=== PATIENT | female | born 1950 | race Caucasian/White ===

== ENCOUNTER 2019-03-08 13:02 | Inpatient (IN) | payer MEDICARE, OTHER ==
[2019-03-08] MEDS ORDERED: Sodium Chloride 0.9% 1,000 ML IV ONE ×2 (13:17→15:20)
[2019-03-08 13:52] LABS: BASOPHILE ABSOLUTE 0.1 Th/cumm (0-0.2); EOSINOPHILE ABSOLUTE 0.1 Th/cmm (0.1-0.4); HEMATOCRIT 41.7 % (41.0-60); HEMOGLOBIN 13.9 gm/dL (12-16); LYMPHOCYTE ABSOLUTE 0.4 Th/cmm (1.5-3.0); MEAN CELL VOLUME 86.3 fl (81-100); MEAN CORPUSCULAR HEMOGLOBIN 28.8 pg (27.0-31.0); MEAN CORPUSCULAR HGB CONC 33.4 pg (28.0-36.0); MONOCYTE ABSOLUTE 0.3 Th/cmm (0.3-1.0); NEUTROPHILE ABSOLUTE 12.3 Th/cmm (1.8-8.0); PLATELET COUNT 446 Th/cmm (150-400); RED BLOOD COUNT 4.83 Mil/cmm (3.80-5.20); RED CELL DISTRIBUTION WIDTH 14.8 % (11.5-20.0); WHITE BLOOD COUNT 13.2 Th/cmm (4.8-10.8)
[2019-03-08 13:54] LABS: INR 0.92 (0.5-1.4)
[2019-03-08 14:01] LABS: ALB/GLOB RATIO 1.8 (1.0-1.8); ALBUMIN 4.6 gm/dL (3.7-5.3); ALKALINE PHOSPHATASE 92 U/L (34-104); ANION GAP 16.5 (7.0-16.0); BILIRUBIN,TOTAL 0.3 mg/dL (0.3-1.0); BUN - UREA NITROGEN 30 mg/dL (7-25); CALCIUM SERUM 10.3 mg/dL (8.6-10.3); CARBON DIOXIDE 20.5 mEq/L (21.0-31.0); CHLORIDE 106 mEq/L (98-107); CREATININE KINASE 55 U/L (30-223); GFR AFRICAN-AMERICAN > 60.0 ml/min (>90); GFR NON AFRICAN-AMERICAN 58.6 ml/min; GLUCOSE 129 mg/dL (70-105); SGOT 18 U/L (13-39); SGPT/ALT 13 U/L (7-52); SODIUM SERUM 138 mEq/L (136-145); TOTAL PROTEIN,SERUM 7.2 gm/dL (6.0-8.3)
[2019-03-08 14:02] LABS: AMYLASE SERUM 82 U/L (29-103); LIPASE 74 U/L (11-82)
[2019-03-08 14:41] LABS: BAND NEUTROPHILE 0 % (0-10); BASOPHIL 0 % (0-3); EOSINOPHIL 0 % (0-5); LYMPHOCYTE 4 % (20-50); MONOCYTE 3 % (2-10); NEUTROPHILS 93 % (40-80)
[2019-03-08 14:42] LABS: PLATELET ESTIMATE INCREASED PLATELETS (NORMAL)
--- NOTE | 2019-03-08 14:46 | ED Physician Chart ---
ED Chief Complaint/HPI - Patient Information Date Seen:: 03/08/19 Time Seen:: 13:25 Chief Complaint:: Fever History of Present Illness:: onset x 3 days of fever, cough, congestion, A/N/V/D; no report of/pt denies trauma, H/As, neck pain, C/P, SOB, Abd. Pain, or urinary s/s Allergies:: Allergies Allergy/AdvReac Type Severity Reaction Status Date / Time gabapentin Allergy Verified 03/08/19 13:23 Vitals:: Vital Signs - 8 hr 03/08/19 13:29 Temp 97.4 F HR 56 RR 18 BP 124/48 O2 Sat % 98 Historian:: Patient, EMS Review:: Nurse's Note Reviewed, Old Chart Reviewed, EMS run form Reviewed ED Review of Systems - Review of Systems General/Constitutional: No fever, No chills, No weight loss, No weakness, No diaphoresis, No edema, No loss of appetite Skin: No skin lesions, No rash, No bruising Head: No headache, No light-headedness Eyes: No loss of vision, No pain, No diplopia ENT: No earache, No nasal drainage, No sore throat, No tinnitus Neck: No neck pain, No swelling, No thyromegaly, No stiffness, No mass noted Cardio Vascular: No chest pain, No palpitations, No PND, No orthopnea, No edema Pulmonary: No SOB, No cough, No sputum, No wheezing GI: No nausea, No vomiting, No diarrhea, No pain, No melena, No hematochezia, No constipation, No hematemesis G/U: No dysuria, No frequency, No hematuria, No nacturia Member Service Specialist: No vaginal discharge, No abnormal vaginal bleed, No contraction Musculoskeletal: No bone or joint pain, No back pain, No muscle pain Endocrine: No polyuria, No polydipsia Psychiatric: Prior psych history, Depression, Anxiety, No suicidal ideation, No homicidal ideation, No auditory hallucination, No visual hallucination Hematopoietic: No bruising, No lymphadenopathy Allergic/Immuno: No urticaria, No angioedema Neurological: No syncope, No focal symptoms, No weakness, No paresthesia, No headache, No seizure, No dizziness, No confusion, No vertigo ED Past Medical History - Past Medical History Obtainable: Yes Past Medical History: HTN, PUD/GERD Family History: HTN Social History: Non Smoker, No Alcohol, No Drug Use, Single, Care Facility Surgical History: None Psychiatricy History: Depression Medication: Reviewed Family Medical History - Family Member Mother History Unknown: Yes ED Physical Exam - Physical Examination General/Constitutional: Awake, Well-developed, well-nourished, Alert, No distress, GCS 15, Non-toxic appearing, Ambulatory Head: Atraumatic Eyes: Lids, conjuctiva normal, PERRL, EOMI Skin: Nl inspection, No rash, No skin lesions, No ecchymosis, Well hydrated, No lymphadenopathy ENMT: External ears, nose nl, TM canals nl, Nasal exam nl, Lips, teeth, gums nl , Oropharynx nl, Tonsils nl Neck: Nontender, Full ROM w/o pain, No JVD, No nuchal rigidity, No bruit, No mass, No stridor Respiratory: Nl effort/Exclusion Other Respiratory comments:: Lungs: + Rales and Rhonchi Cardio Vascular: RRR, No murmur, gallop, rubs, NL S1 S2, Carotid/Femoral/Distal pulses equal bilaterally GI: No tenderness/rebounding/guarding, No organomegaly, No hernia, Normal BS's, Nondistended, No mass/bruits, No McBurney tenderness : No CVA tenderness Extremities: No tenderness or effusion, Full ROM, normal strength in all extremities, No edema, Normal digits & nails Neuro/Psych: Alert/oriented, DTR's symmetric, Normal sensory exam, Normal motor strength, Judgement/insight normal, Mood normal, Normal gait, No focal deficits Misc: Normal back, No paraspinal tenderness ED Labs/Radiology/EKG Results - Lab Results Results: Laboratory Tests 03/08/19 03/08/19 03/08/19 13:32 13:32 13:32 WBC 13.2 H RBC 4.83 Hgb 13.9 Hct 41.7 MCV 86.3 MCH 28.8 MCHC Differential 33.4 RDW 14.8 Plt Count 446 H MPV 7.5 Add Manual Diff YES Band Neutrophils % 0 Neutrophils (Manual) 93 H Lymphocytes 4 L Monocytes 3 Eosinophils 0 Basophils 0 Platelet Estimate INCREASED PLATELETS PT 9.6 INR 0.92 PTT (Actin FS) 25.9 L Sodium 138 Potassium 5.0 Chloride 106 Carbon Dioxide 20.5 L Anion Gap 16.5 H BUN 30 H Creatinine 1.0 Est GFR ( Amer) > 60.0 Est GFR (Non-Af Amer) 58.6 BUN/Creatinine Ratio 30.0 Glucose 129 H Whole Bld Lactic Acid Calcium 10.3 Total Bilirubin 0.3 AST 18 ALT 13 Alkaline Phosphatase 92 Creatine Kinase 55 Troponin I Total Protein 7.2 Albumin 4.6 Globulin 2.6 Albumin/Globulin Ratio 1.8 Amylase Lipase 03/08/19 03/08/19 13:32 13:32 WBC RBC Hgb Hct MCV MCH MCHC Differential RDW Plt Count MPV Add Manual Diff Band Neutrophils % Neutrophils (Manual) Lymphocytes Monocytes Eosinophils Basophils Platelet Estimate PT INR PTT (Actin FS) Sodium Potassium Chloride Carbon Dioxide Anion Gap BUN Creatinine Est GFR ( Amer) Est GFR (Non-Af Amer) BUN/Creatinine Ratio Glucose Whole Bld Lactic Acid 2.30 H* Calcium Total Bilirubin AST ALT Alkaline Phosphatase Creatine Kinase Troponin I 0.01 Total Protein Albumin Globulin Albumin/Globulin Ratio Amylase 82 Lipase 74 Comments:: Reviewed - Radiology Results Comments:: CXR: + Large Left Perihilar mass/infiltrate - EKG Interpretations EKG Time:: 13:23 Rate & Rhythm: 39; SB Comments:: non-specific st-t changes ED Septic Shock - . Is Septic Shock (SBP<90, OR Lactate>4 mmol\L) present?: No - <6hrs of presentation: Vital Signs: Vital Signs - 8 hr 03/08/19 13:29 Temp 97.4 F HR 56 RR 18 BP 124/48 O2 Sat % 98 ED Reassessment (Disposition) - Reassessment Reassessment Condition:: Improved - Diagnosis Diagnosis:: Fever; N/V/D; AGE; Elevated Lactic Acid; Lactic Acidosis; Dehydration; PNA; Leukocytosis; Bradycardia; Sepsis - Aftercare/Follow up Instructions Aftercare/Follow-Up Instructions:: Counseled pt regarding lab results/diagnosis & need follow up, Counseled pt & family regarding lab results/diagnosis & need follow up - Patient Disposition Discharge/Transfer:: Acute Care w/in this hosp Accepting Physician:: Dr. Oseguera Time Called:: 1500 Time Responded:: 15:00 Admitted to:: ICU Spoke to:: Dr. Oseguera Admitting Medical Physician:: Dr. Oseguera Condition at Disposition:: Stable, Improved
--- NOTE | 2019-03-08 14:48 | Diagnostic Imaging Report ---
CHEST X-RAY: AP view INDICATION: Fever, cough COMPARISON: None FINDINGS: There is a large left perihilar mass measuring 7.6 x 5.7 cm. No effusions. Heart size is normal. Degenerative changes of the spine are noted. IMPRESSION: Large left perihilar mass most corporate representative of malignancy. Recommend further assessment with CT of the chest. Referring team was informed of the findings following the exam.
[2019-03-08] MEDS ORDERED: cefTRIAXone 1 GM in Sodium Chloride 0.9% 50 ML IV ONE (15:06)
[2019-03-08] MEDS ORDERED: Atropine Sulfate 1 mg/mL 1 mL Vial IVP ONE (15:21)
[2019-03-08 18:24] LABS: URINE SOURCE MIDSTREAM
[2019-03-08 18:26] LABS: URINE BILIRUBIN NEGATIVE (NEGATIVE); URINE BLOOD NEGATIVE (NEGATIVE); URINE GLUCOSE (UA) NEGATIVE (NEGATIVE); URINE KETONE NEGATIVE (NEGATIVE); URINE LEUKOCYTE ESTERASE NEGATIVE (NEGATIVE); URINE NITRATE NEGATIVE (NEGATIVE); URINE PROTEIN NEGATIVE (NEGATIVE); URINE UROBILINOGEN 0.2 E.U./dL (0.2 - 1.0)
[2019-03-08 18:30] LABS: URINE CLARITY CLEAR (CLEAR); URINE COLOR YELLOW; URINE MICROSCOPIC INDICATED? YES
[2019-03-08 18:32] LABS: URINE BACTERIA 1+ /hpf (NONE SEEN); URINE EPITHELIAL CELLS RARE /lpf (FEW); URINE RBC NONE SEEN /hpf (0-5); URINE WBC NONE SEEN /hpf (0-5)
[2019-03-08] MEDS ORDERED: Maalox 30 mL Cup PO PRN (18:38)
[2019-03-08] MEDS ORDERED: Magnesium Hydroxide (MOM) 30 mL UDC PO PRN (18:38)
[2019-03-08] MEDS ORDERED: guaiFENesin 200 MG/10 ML UDC PO PRN (18:42)
[2019-03-08] MEDS ORDERED: D5-0.45NS 1,000 ML IV SCH (18:45)
[2019-03-08] MEDS ORDERED: Ipratropium Neb 0.5 mg/2.5 mL UD HHN SCH (19:00)
[2019-03-08] MEDS ORDERED: Albuterol Nebulizer 2.5mg/3mL HHN SCH (19:00)
--- NOTE | 2019-03-08 20:11 | History & Physical ---
ADMIT DATE: 03/08/2019 CHIEF COMPLAINT: Fever and vomiting. HISTORY OF PRESENT ILLNESS: This is a 68-year-old female with history of mental illness, bipolar, hypertension, admitted from [facility] secondary to fever and vomiting. The patient apparently ate some clams. The patient was brought to the ER, noted to have low heart rate in the 30s-40s. The patient also noted to have elevated lactic acid, elevated white count. The patient with abnormal chest x-ray as well. PAST MEDICAL HISTORY: As mentioned in the history of present illness. PAST SURGICAL HISTORY: Denies surgeries in the past. ALLERGIES: No known drug allergies. MEDICATIONS: Multivitamin, melatonin, magnesium, Colace, Dulcolax, Tylenol. FAMILY HISTORY: Noncontributory. SOCIAL HISTORY: The patient is from [facility]. REVIEW OF SYSTEMS: This is limited secondary to the patient's current mental state. The patient is not a best historian. We will try to obtain more detailed review of system at a later date by talking to family members as well as from Dr. Soria who knows the patient by previous admissions. There is a daughter, Carmen Pennington #[phone]. There is a conservator Jimbo Teixeira #[phone]. PHYSICAL EXAMINATION: VITAL SIGNS: Blood pressure 102/40 on 03/06/2019, pulse 85, temperature is 97.7, heart rates as low as 40, blood pressure still was 87/47. GENERAL: Elderly female, appears her stated age. NECK: Supple. No mass. LUNGS: Equal breath sounds, few rhonchi. HEART: Regular rate and rhythm with systolic ejection murmur. ABDOMEN: Soft, globular. EXTREMITIES: Positive excoriation. NEUROLOGIC: Limited. LABORATORY DATA: WBC 13, hemoglobin 13, platelets 446. Sodium 130, potassium 4.0, BUN 34, creatinine 1.0, bicarb is 20, lactic acid 3.1, glucose 129. UA showed some bacteria. ASSESSMENT AND PLAN: Sepsis, possible pneumonia, leukocytosis, thrombocytosis, renal insufficiency/dehydration, lactic acidosis, hyperglycemia, hypotension, schizoaffective disorder, bradycardia, large left lung mass. Continue the patient on oxygen and bronchodilator treatment. Continue to be on empiric IV antibiotic. We will put the patient to Zosyn, 1 dose of vancomycin. We will refer the patient to Pulmonary as well as Cardiology. We will order CT chest without contrast. Apparently, the patient refused CAT scan with contrast. We will continue to follow. We will admit the patient to Telemetry. We will also refer the patient to Psychiatry. JOB# [id number] MTDD
[2019-03-08] MEDS ORDERED: Non-Formulary Item 1 EA (Melatonin [Melatonin] 3 MG) PO SCH (21:00)
[2019-03-08] MEDS: Heparin Sod 5,000Units/ML 5,000 UNITS/ML VIAL SUBQ SCH ×2 (21:03→21:05)
[2019-03-08 21:22] VITALS: BP 93/42
[2019-03-08] MEDS ORDERED: DOPamine 400 MG/250 ML BAG IV ONE (22:09)
[2019-03-08] MEDS ORDERED: Sodium Chloride 0.9% 500 ML IV ONE (22:14)
[2019-03-08] MEDS ORDERED: DOPamine 400 MG/250 ML BAG IV PRN (22:16)
[2019-03-09] MEDS ORDERED: Norepinephrine 4 mg/4mL Vial IV ONE ×2 (00:24→00:25)
[2019-03-09] MEDS ORDERED: DOPamine 400 MG/250 ML BAG IV ONE (04:06)
[2019-03-09] MEDS ORDERED: Multivitamin Tab PO SCH (09:00)
--- NOTE | 2019-03-09 10:59 | Diagnostic Imaging Report ---
CT Chest without IV contrast HISTORY: Mass COMPARISON: Chest x-ray seen earlier the same day. Technique: Axial images were obtained from the base of the neck to the upper abdomen without IV contrast. Reconstructions were made. Total DLP 201 CTD I 6.2 Findings: Exam is limited due to lack of IV contrast. No definite mediastinal lymphadenopathy. Heart size is normal. The ascending aorta measures up to 3.1 cm. Diffuse atherosclerosis is noted. There is a large mass primarily involves the left lower lobe and along the left posterior hilum and encasing the descending aorta. This mass measures 8.1 x 4.4 greatest dimension. Hypoventilatory and atelectatic lung changes are noted with minimal left basal consolidative changes/passive atelectasis. No pneumothorax. The upper abdomen shows small low-density liver lesions difficult to characterize. Gallstones are noted. Renal cysts are noted including partially visualized 2.3 cm left renal cyst. Degenerative changes of the spine are noted. IMPRESSION: Mild large left lung mass primarily located in the left lower lobe along the posterior left hilar region and encasing the lateral margins of the descending aorta. Findings are most hvac sales representative of bronchogenic malignancy. Clinical correlation and follow up recommended Minimal left basal passive atelectasis/consolidative changes. Diffuse atherosclerotic vascular disease Additional findings as above.
--- NOTE | 2019-03-09 12:19 | Discharge Summary ---
DATE OF DISCHARGE: 03/09/2019 SUMMARY CHIEF COMPLAINT: Fever and vomiting. FINAL DIAGNOSES: The patient ____ cardiac arrhythmia, sepsis, hypotension/septic shock, acute respiratory failure. The patient was intubated, leukocytosis, thrombocytosis, lactic acidosis, hyperglycemia, psych disorder and bradycardia, large left lung mass. HISTORY: This was a 68-year-old female with history of mental illness, hypertension, admitted from [facility] secondary to fever and vomiting. The patient also noted to have elevated lactic acid and white count and one time had a low heart rate. The patient admitted for management. HOSPITAL COURSE: The patient was initially admitted to telemetry as the patient's blood pressure has normalized as well as the heart rate, but during the night the patient's heart rate dropped again and blood pressure dropped. The patient was started on a dopamine drip, given Ativan with IV hydrations. The patient is on IV vancomycin and IV Zosyn. She was referred to Cardiology as well as Pulmonary and Psychiatry, but the patient ____ several times and eventually was not able to be revived successfully. The patient was seen by Dr. Ledesma, the patient was pronounced at 12:42. CONDITION ON DISCHARGE: The patient . DISCHARGE INSTRUCTIONS: The patient . [facility]# [id number]
== END 2019-03-09 00:41 | disposition expired | DRG 871 ==
LOC: ER 13:02 → TELE 18:40 → ICU 03-09 00:20
PROVIDERS: ADMIT Internal Medicine; ATTEND Internal Medicine
PROC: 0BH17EZ Insertion of Endotracheal Airway into Trachea, Via Natural or Artificial Opening (ICD-10-PCS; principal; 2019-03-08)
PROC: 5A1935Z Respiratory Ventilation, Less than 24 Consecutive Hours (ICD-10-PCS; 2019-03-08)
DX: A41.9 Sepsis, unspecified organism (principal); R65.21 Severe sepsis with septic shock; J96.00 Acute respiratory failure, unspecified whether with hypoxia or hypercapnia; J18.9 Pneumonia, unspecified organism; E87.2 Acidosis; I46.9 Cardiac arrest, cause unspecified; F31.9 Bipolar disorder, unspecified; I10 Essential (primary) hypertension; D47.3 Essential (hemorrhagic) thrombocythemia; E86.0 Dehydration; R73.9 Hyperglycemia, unspecified; F25.9 Schizoaffective disorder, unspecified
CPT/HCPCS: 36415-UA; 71045-TC; 71250-TC; 80053-TC; 81001-TC; 82150-TC; 82550-TC; 83605; 83690-TC; 84484-TC; 85007-TC; 85025-TC; 85610-TC; 85730-TC; 90779; 92950; 93005; 94002; 94760; J0282; J0461; J0696; J1265; J1644; J2405; J2543; J3370; J7030; J7040; J7613; X6452; Z7610